=== PATIENT | male | born 1960 | race Caucasian/White ===

== ENCOUNTER → 2020-04-10 07:39 | Outpatient (BNVA) | payer BC, SELFPAY | PROVIDERS: Family Provider Family Medicine; PCP Family Medicine; Referring Provider Family Medicine; Visit Provider Urology | DX: Z12.5 Encounter for screening for malignant neoplasm of prostate (principal); R79.89 Other specified abnormal findings of blood chemistry; N52.9 Male erectile dysfunction, unspecified | CPT/HCPCS: 81001 ==

== ENCOUNTER → 2020-07-14 08:07 | Outpatient (BNVA) | payer BC, SELFPAY | PROVIDERS: Family Provider Family Medicine; PCP Family Medicine; Visit Provider Urology | DX: R79.89 Other specified abnormal findings of blood chemistry (principal); N52.1 Erectile dysfunction due to diseases classified elsewhere | CPT/HCPCS: 81001 ==

== ENCOUNTER → 2021-01-12 08:12 | Outpatient (BNVA) | payer OTHER, SELFPAY | PROVIDERS: Family Provider Family Medicine; PCP Family Medicine; Visit Provider Urology | DX: R79.89 Other specified abnormal findings of blood chemistry (principal); Z12.5 Encounter for screening for malignant neoplasm of prostate; N52.1 Erectile dysfunction due to diseases classified elsewhere | CPT/HCPCS: 81003; 84403; G0103 ==

== ENCOUNTER 2021-04-14 09:42 | Outpatient (CLI) | payer OTHER, SELFPAY ==
--- NOTE | 2021-04-14 09:48 | USCV_ITS ---
Venancio Cooper Age: 61 Gender: M : 1960 Exam Date: 04/14/2021 10:03 Ordering Phys: Christy Dorman NP Technologist: Kalyn Sanches Exam Location: [facility] [place] Indication: RT CALF PAIN PROCEDURES: Venous duplex imaging was performed in only the right lower extremity. The following venous structures were evaluated: common femoral vein, profunda vein, proximal portion of the greater saphenous vein, superficial femoral vein, and the popliteal vein. In addition, the posterior tibial and peroneal trunk were evaluated. FINDINGS: No evidence dvt rle. Tubular structure seen in rt calf at area of pain. Prelim called to Mrs. Dorman. CONCLUSIONS No evidence of right lower extremity DVT. Elongated Fluid collection benign appearing fluid collection Rt medial lower leg below the knee measuring 5.6 x 0.5 cm with some internal debris Chris Ortega MD (Electronically Signed) Final Date: 14 April 2021 12:19 S
== END 2021-04-14 09:43 | disposition home or self-care (01) ==
LOC: RAD 09:44
PROVIDERS: PCP Family Medicine; Visit Provider Nurse Practitioner Family
DX: M79.661 Pain in right lower leg (principal); M79.89 Other specified soft tissue disorders
CPT/HCPCS: 93971

== ENCOUNTER → 2021-07-15 08:16 | Outpatient (BNVA) | payer OTHER, SELFPAY | PROVIDERS: PCP Family Medicine; Visit Provider Urology | DX: R79.89 Other specified abnormal findings of blood chemistry (principal) | CPT/HCPCS: 81003; 84403 ==

== ENCOUNTER → 2021-08-12 14:05 | Outpatient (BNVA) | payer OTHER, SELFPAY | PROVIDERS: PCP Family Medicine; Referring Provider Family Medicine; Visit Provider Specialist | DX: G56.03 Carpal tunnel syndrome, bilateral upper limbs (principal) | CPT/HCPCS: 95910 ==

== ENCOUNTER → 2021-08-19 13:39 | Outpatient (BNVA) | payer OTHER, SELFPAY | PROVIDERS: PCP Family Medicine; Referring Provider Family Medicine; Visit Provider Specialist | DX: G56.03 Carpal tunnel syndrome, bilateral upper limbs (principal) | CPT/HCPCS: 73110 ==

== ENCOUNTER 2021-10-12 16:17 | Emergency (ER) | payer OTHER, SELFPAY ==
[2021-10-12 16:21] VITALS: BP 143/83; PULSE 93; RESP 18; TEMP 36.7; O2SAT 97; BMI 25.0
--- NOTE | 2021-10-12 19:17 | XRR_ITS ---
PROCEDURE INFORMATION: Exam: XR Chest Exam date and time: 10/12/2021 7:17 PM Age: 61 years old Clinical indication: Shortness of breath; Additional info: SOB TECHNIQUE: Imaging protocol: XR of the chest. Views: 1 view. COMPARISON: CR Chest 2 views* [id number] 10/20/2016 4:23 PM FINDINGS: Lungs: Mild linear atelectasis or scar in the left lung base. The right lung is clear. Probable emphysema. Pleural spaces: Unremarkable. No pleural effusion. No pneumothorax. Heart/Mediastinum: Unremarkable. No cardiomegaly. Bones/joints: Unremarkable. XR/XR chest 1V portable [id number] IMPRESSION: No acute finding.
--- NOTE | 2021-10-12 19:17 | ECG_ITS ---
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 Measurements Intervals Rush Rate: 88 P: 81 ND: 139 QRS: 80 QRSD: 117 T: 51 QT: 362 QTc: 440 Interpretive Statements SINUS RHYTHM MODERATE INTRAVENTRICULAR CONDUCTION DELAY [110+ ms QRS DURATION] Compared to ECG 10/20/2016 16:49:04 Intraventricular conduction delay now present Electronically Signed On 10-13-2021 23:42:47 PILE DRIVING SETTER by Stevie Leary M.D. [id number]
[2021-10-12 19:33] LABS: Basophils # 0.1 10^3/uL (0.0-0.1); Basophils % 0.5 %; Eosinophils # 0.2 10^3/uL (0.0-0.8); Eosinophils % 1.5 %; Hematocrit 50.7 % (42.0-52.0); Hemoglobin 17.2 g/dL (11.7-16.6); Lymphocytes % 21.8 %; Mean Corpuscular HGB Conc 33.9 g/dL (30.0-36.0); Mean Corpuscular Volume 91.5 fl (80-94); Mean Platelet Volume 8.9 fL (7.4-10.4); Monocytes # 0.7 10^3/uL (0.2-0.9); Monocytes % 5.3 %; Neutrophils # 9.67 10^3/uL (1.8-7.7); Neutrophils % 70.6 %; Nucleated Red Blood Cells % 0 %; Platelet Count 284 10^3/cmm (130-400); Red Blood Count 5.54 10^6/uL (4.1-5.3); Red Cell Distribution Width 12.3 % (12.1-15.1); White Blood Count 13.7 10^3/uL (4.0-10.0)
[2021-10-12 20:02] LABS: Alanine Aminotransferase 13 U/L (0-41); Albumin Level 4.1 g/dL (3.5-5.2); Alkaline Phosphatase 80 IU/L (40-130); Anion Gap 15.7 (5-19); Aspartate Amino Transferase 12 U/L (0-40); Blood Urea Nitrogen 9 mg/dL (8-23); Calcium 8.4 mg/dL (8.5-10.5); Carbon Dioxide 23 mmol/L (22-29); Chloride 105 mmol/L (98-107); Globulin 2.9 g/dL (1.3-4.6); Glomerular Filtration Rate 114.6 mL/min (90-130); Glucose 89 mg/dL (65-115); NT Pro B Type Natriuretic Pept 24 pg/mL (0-125); Osmolality Calculated 288 mOsm/kg (285-295); Potassium 3.7 mmol/L (3.5-5.1); Sodium 140 mmol/L (136-145); Total Bilirubin 0.6 mg/dL (0.15-1.2)
[2021-10-12 21:18] LABS: Adenovirus Not Detected (NOT DETECT); Chlamydia Pneumoniae Not Detected (NOT DETECT); Coronavirus 229E,HKU1,NL63,OC4 Not Detected (NOT DETECT); Human Metapneumovirus Not Detected (NOT DETECT); Human Rhinovirus/Enterovirus Not Detected (NOT DETECT); Influenza A Not Detected (NOT DETECT); Influenza A H1 Not Detected (NOT DETECT); Influenza A H1-2009 Not Detected (NOT DETECT); Influenza A H3 Not Detected (NOT DETECT); Influenza B Not Detected (NOT DETECT); Mycoplasma Pneumoniae Not Detected (NOT DETECT); Parainfluenza Virus Type 1 Not Detected (NOT DETECT); Parainfluenza Virus Type 2 Not Detected (NOT DETECT); Parainfluenza Virus Type 3 Not Detected (NOT DETECT); Parainfluenza Virus Type 4 Not Detected (NOT DETECT); Respiratory Syncytial Virus A Not Detected (NOT DETECT); Respiratory Syncytial Virus B Detected (NOT DETECT); SARS-COV-2 Not Detected (NOT DETECT)
[2021-10-12 21:51] LABS: Respiratory Syncytial Virus A Not Detected (NOT DETECT); Respiratory Syncytial Virus B Detected (NOT DETECT); Results from Genmark
--- NOTE | 2021-10-12 22:07 | W.ED.COVID ---
HPI - COVID General: Chief Complaint: COVID symptoms Stated Complaint: CHEST PAIN DIFF BREATHING Time Seen by Provider: 10/12/21 21:54 Source: patient Mode of arrival: ambulatory Limitations: no limitations Triage information: Has fever, cough or shortness of breath. No known COVID + exposure last 14 days History of Present Illness: HPI Narrative: 61-year-old male states that over the last 5 to 7 days been having cough congestion sinus pressure. States that he had a fever that is improved the last 2 days been having increasing wheezing and cough today. States he went to another facility to have a Covid test today and ran out of the testing and had them come here states he does not feel short of breath currently is in no distress able speak in full sentences denies any vomiting or diarrhea denies any worsening improving factors. COVID 19 common symptoms: positive non-productive cough and dyspnea; negative fever(s), chills, body aches, headache(s), throat pain, nausea, vomiting or diarrhea COVID 19 other sytmptoms: negative chest pain COVID Results: SARS-CoV-2 RNA (RT-PCR) Pending 10/12/21 23:59 10/12/21 Review of Systems Const: Denies: fever(s), chills, body aches or change in appetite Eyes: Denies: blurry vision or eye discomfort ENMT: Denies: throat pain or dental pain Card: Denies: chest pain Resp: Reports: dyspnea, non-productive cough and wheezing GI: Denies: abdominal pain, nausea, vomiting or diarrhea : Denies: dysuria Musc: Denies: neck pain or back pain Skin/Breast: Denies: rash Neuro: Denies: headache(s) Psych: Denies: depression Roberto/Lymph: Denies: easy bruising All/Imm: Denies: urticaria PFSH ED PFSH: Medical History (Updated 10/12/21 @ 22:09 by Didier Becker MD) Bilateral carpal tunnel syndrome Erectile dysfunction Low testosterone Surgical History H/O hernia repair Family History Father CAD (coronary artery disease) Hypertension Mother Hypertension Brother Hypertension Sister Hypertension Social History Alcohol intake: current Alcohol intake frequency: few times a month Alcohol type: other Lives independently: Yes Household members: spouse Marital status: Current occupational status: employed Physical Exam Const: COMMON NORMALS: no acute distress, patient oriented x3 and healthy appearing HENMT: COMMON NORMALS: normocephalic and atraumatic HEAD & SCALP: normocephalic and atraumatic Eye: COMMON NORMALS: Equal, round and reactive pupils present and EOMs intact bilaterally PUPIL: Yes Equal, round and reactive pupils present Neck/C-Spine: COMMON NORMALS: full ROM and supple Chest: COMMONS NORMALS: normal inspection of the chest and normal palpation of entire chest wall Resp: COMMON NORMALS: normal respiratory effort, No retractions and No use of accessory muscles AUSCULTATION: wheezes Cardio: COMMON NORMALS: regular rate, regular rhythm and No murmurs present (Cardio) RATE: regular rate RHYTHM: regular rhythm GI: COMMON NORMALS: Normal to inspection, nondistended, normoactive bowel sounds present, Soft to palpation, non-tender and no masses PALPATION: Yes Soft to palpation Extremity: COMMON NORMALS: normal to inspection and full ROM Neuro: COMMON NORMALS: patient oriented x3, moves all extremities and no focal motor deficits Psych: COMMON NORMALS: mental status grossly normal, Normal thought process present and cooperative THOUGHT PROCESS: Normal thought process present Skin: COMMON NORMALS: no rashes or lesions noted and no wounds GENERAL SKIN EXAM: no rashes or lesions noted Course Vital Signs: Vital signs: Vital Signs Temperature 98.1 F 10/12/21 16:21 Pulse Rate 93 10/12/21 22:10 Respiratory Rate 18 10/12/21 22:10 Blood Pressure 148/120 10/12/21 22:10 Pulse Oximetry 96 10/12/21 22:12 MDM - COVID MDM Narrative: Medical decision making narrative: Patient presents with cough congestion does have some wheezing here blood work here is all normal x-ray shows no signs of pneumonia is Covid test here is negative he is in no distress we will place him on steroids along with antibiotics and albuterol inhaler for his bronchitis he is to follow his PCP in 2 to 4 days return if worsening. Lab Data: Labs: Lab Results 10/12/21 10/12/21 10/12/21 19:25 19:25 19:25 WBC 13.7 10^3/uL H 10 ^3/uL (4.0-10.0) RBC 5.54 10^6/uL H 10 ^6/uL (4.1-5.3) Hgb 17.2 g/dL H g/dL (11.7-16.6) Hct 50.7 % % (42.0-52.0) MCV 91.5 fl fl (80-94) MCH 31.0 pg pg (28.0-34.0) MCHC 33.9 g/dL g/dL (30.0-36.0) RDW 12.3 % % (12.1-15.1) Plt Count 284 10^3/cmm 10^3 /cmm (130-400) MPV 8.9 fL fL (7.4-10.4) Neut % (Auto) 70.6 % % Lymph % (Auto) 21.8 % % Bourbon % (Auto) 5.3 % % Eos % (Auto) 1.5 % % Baso % (Auto) 0.5 % % Neut # (Auto) 9.67 10^3/uL H 10 ^3/uL (1.8-7.7) Lymph # (Auto) 3.0 10^3/uL 10^3/ uL (0.8-4.8) Bourbon # (Auto) 0.7 10^3/uL 10^3/ uL (0.2-0.9) Eos # (Auto) 0.2 10^3/uL 10^3/ uL (0.0-0.8) Baso # (Auto) 0.1 10^3/uL 10^3/ uL (0.0-0.1) Nucleated RBC % (a uto) 0 % % Nucleated RBCs # 0.0 /100WBC /100W BC Sodium 140 mmol/L mmol/L (136-145) Potassium 3.7 mmol/L mmol/L (3.5-5.1) Chloride 105 mmol/L mmol/L (98-107) Carbon Dioxide 23 mmol/L mmol/L (22-29) Anion Gap 15.7 (5-19) BUN 9 mg/dL mg/dL (8-23) Creatinine 0.7 mg/dL mg/dL (0.7-1.2) GFR Calculation 114.6 mL/min mL/m in (90-130) Glucose 89 mg/dL mg/dL (65-115) Calculated Osmolal ity 288 mOsm/kg mOsm/ kg (285-295) Calcium 8.4 mg/dL L mg/dL (8.5-10.5) Total Bilirubin 0.6 mg/dL mg/dL (0.15-1.2) AST 12 U/L U/L (0-40) ALT 13 U/L U/L (0-41) Alkaline Phosphata se 80 IU/L IU/L (40-130) NT-Pro-B Natriuret Pep 24 pg/mL pg/mL (0-125) Total Protein 7.0 g/dL g/dL (6.6-8.7) Albumin 4.1 g/dL g/dL (3.5-5.2) Globulin 2.9 g/dL g/dL (1.3-4.6) Coronavirus 229E ( PCR) Not detected (NOT DETECT) RSV Type A (PCR) RSV Type B (PCR) SARS-CoV-2 (PCR) Not detected (NOT DETECT) 10/12/21 21:30 WBC RBC Hgb Hct MCV MCH MCHC RDW Plt Count MPV Neut % (Auto) Lymph % (Auto) Bourbon % (Auto) Eos % (Auto) Baso % (Auto) Neut # (Auto) Lymph # (Auto) Bourbon # (Auto) Eos # (Auto) Baso # (Auto) Nucleated RBC % (a uto) Nucleated RBCs # Sodium Potassium Chloride Carbon Dioxide Anion Gap BUN Creatinine GFR Calculation Glucose Calculated Osmolal ity Calcium Total Bilirubin AST ALT Alkaline Phosphata se NT-Pro-B Natriuret Pep Total Protein Albumin Globulin Coronavirus 229E ( PCR) RSV Type A (PCR) Not detected (NOT DETECT) RSV Type B (PCR) Detected A (NOT DETECT) SARS-CoV-2 (PCR) Imaging Data: CXR: Attestation: I personally reviewed and interpreted this imaging study as follows: My impression: No acute abnormality EKG Data: EKG 1: Attestation: I personally reviewed and interpreted this EKG as follows: EKG interpretation date: 10/12/21 EKG interpretation time: 22:38 Interpretation: nsr hr [address] or t wave abnormlities qrs 117 qtc 408 COVID Results: SARS-CoV-2 RNA (RT-PCR) Pending 10/12/21 23:59 10/12/21 Discharge Plan Discharge Patient Disposition: Home Clinical Impression: Bronchitis Condition: Stable Prescriptions: New prednisone 50 mg tablet 50 mg PO DAILY Qty: 5 RF: 0 albuterol sulfate 90 mcg/actuation HFA aerosol inhaler 2 inh INHALATION Q6H PRN (Reason: shortness of breath or wheezing) Qty: 8 RF: 0 doxycycline hyclate 100 mg tablet 100 mg PO BID 7 Days Qty: 14 RF: 0 No Action esomeprazole magnesium [Nexium] 20 mg capsule,delayed release(DR/EC) 20 mg PO DAILY RF: 0 hydrocodone-acetaminophen [[place]] 5-325 mg tablet 1 tab PO Q6H PRNRF: 0 escitalopram oxalate [Lexapro] 20 mg tablet 20 mg PO DAILY RF: 0 bupropion HCl 150 mg tablet extended release 24 hr 150 mg PO QAM RF: 0 testosterone cypionate [Depo-Testosterone] 200 mg/mL oil 200 mg IM .EVERY OTHER WEEK Qty: 10 RF: 5 Discharge Orders: Discharge ED (Routine); Ordered 10/12/21 Ordered By: Didier Becker Referrals: Francheska Perez MD [Primary Care Provider] - 1-3 days Discharge Diet: Advance as tolerated Discharge Activity: Resume usual activity Patient Instructions: Bronchitis (Acute) - Adult Coding Level of Care Code ED Hvac Mechanic for Chg Fwd Exam Comprehensive
[2021-10-12 22:10] VITALS: BP 148/120; PULSE 93; RESP 18; O2SAT 96
[2021-10-12 22:12] VITALS: O2SAT 96
[2021-10-12] MEDS: albuterol 8 gm MDI 2 PUFF INHALATION (22:25)
== END 2021-10-12 22:44 | disposition home or self-care (01) ==
PROVIDERS: Emergency Provider Emergency Medicine; PCP Family Medicine
DX: J40 Bronchitis, not specified as acute or chronic (principal); Z20.822 Contact with and (suspected) exposure to COVID-19
CPT/HCPCS: 71045; 80053; 83880; 85025; 87635; 87801; 93005; 94640; 99283; J3535

== ENCOUNTER → 2021-10-26 09:09 | Outpatient (BNVA) | payer MEDICARE, SELFPAY | PROVIDERS: PCP Family Medicine; Visit Provider Specialist | DX: Z01.818 Encounter for other preprocedural examination (principal); Z20.822 Contact with and (suspected) exposure to COVID-19 | CPT/HCPCS: 87635 ==

== ENCOUNTER 2021-10-30 07:38 | Day surgery (SDC) | payer MEDICARE, SELFPAY ==
[2021-10-29 10:33] VITALS: BMI 25.0
[2021-10-30 08:16] VITALS: BP 137/78; PULSE 83; RESP 16; TEMP 36.7; O2SAT 96
[2021-10-30] MEDS: CELEcoxib 200 mg Capsule 400 MG PO (08:49)
[2021-10-30] MEDS: sodium chloride 0.9% 1,000 ML 30 ML IV (08:50)
--- NOTE | 2021-10-30 09:02 | ANES.PREANE2 ---
Pre-Anesthetic Assessment Pre-Anesthetic Assessment: Height/Weight: Height 1.83 m Weight 83.915 kg Temp Pulse Resp BP Pulse Ox 98.1 F 83 16 137/78 96 10/30/21 08:16 10/30/21 08:16 10/30/21 08:16 10/30/21 08:16 10/30/21 08:16 Preop Diagnosis: Left carpal tunnel syndrome Proposed Procedure: Operation Date: 10/30/21 09:10 Proposed Procedures p Carpal Tunnel Release 02406 G56.00(Left) - Elizabeth Stafford MD Familial anesthetic complications: None Was Beta Alexx taken within 24 hours: N/A Was Clonidine taken within 24 hours: N/A Last intake: Intake Last Liquid Date 10/29/21 Last Liquid Time 20:00 Last Solid Date 10/29/21 Last Solid Time 20:00 Social: Social History: No alcohol and No tobacco Exam: Pre-Anes Outpt Exam: alert, oriented x 3, clear to auscultation bilaterally and regular rate & rhythm Airway: Cervical ROM: WNL MP: 2 Dentition: False Pulmonary: Comments: Recent bronchitis last month, finished antibiotics course and prednisone. Back to baseline per patient CV/HEM: CV/HEM: HTN Anesthetic Plan: ASA status: 2 Anesthesia: MAC and Regional (specify below) (tania block) Risk of > 500 ml blood loss (7ml/kg in children): No Medications/Allergies Current Medications: Current Medications Generic Name Dose Route Start Last Admin Trade Name Freq PRN Reason Stop Dose Admin Sodium Chloride 1,000 mls @ 30 ml s/hr 10/30/21 08:15 10/30/21 08:50 Sodium Chloride 0.9% IV 10/31/21 08:14 30 mls/hr .Q24H JOSSELYN Administration PFSH Anesthesia PFSH: Medical History (Updated 10/20/21 @ 00:00 by ) Bilateral carpal tunnel syndrome Erectile dysfunction Low testosterone Surgical History H/O hernia repair Family History Father CAD (coronary artery disease) Hypertension Mother Hypertension Brother Hypertension Sister Hypertension Social History Alcohol intake: current Alcohol intake frequency: few times a month Alcohol type: other Lives independently: Yes Household members: spouse Marital status: Current occupational status: employed Data Anesthesia CBC & Chem 7: 10/30/21 08:40 10/30/21 08:40 Cardiac Studies: No Data to Display
[2021-10-30 09:07] LABS: Basophils # 0.1 10^3/uL (0.0-0.1); Basophils % 0.8 %; Eosinophils # 0.2 10^3/uL (0.0-0.8); Eosinophils % 2.2 %; Hematocrit 48.4 % (42.0-52.0); Hemoglobin 16.4 g/dL (11.7-16.6); Lymphocytes # 2.6 10^3/uL (0.8-4.8); Mean Corpuscular HGB Conc 33.9 g/dL (30.0-36.0); Mean Corpuscular Hemoglobin 31.2 pg (28.0-34.0); Mean Platelet Volume 9.5 fL (7.4-10.4); Monocytes # 0.7 10^3/uL (0.2-0.9); Monocytes % 8.6 %; Neutrophils # 4.86 10^3/uL (1.8-7.7); Nucleated Red Blood Cells % 0 %; Platelet Count 286 10^3/cmm (130-400); Red Blood Count 5.26 10^6/uL (4.1-5.3); White Blood Count 8.5 10^3/uL (4.0-10.0)
[2021-10-30] MEDS: acetaminophen 1,000 MG/100 ML PIGGYBACK 400 MG IV (09:08)
[2021-10-30 09:25] LABS: Alanine Aminotransferase 19 U/L (0-41); Alkaline Phosphatase 77 IU/L (40-130); Aspartate Amino Transferase 15 U/L (0-40); Blood Urea Nitrogen 9 mg/dL (8-23); Calcium 8.5 mg/dL (8.5-10.5); Carbon Dioxide 23 mmol/L (22-29); Chloride 104 mmol/L (98-107); Globulin 2.1 g/dL (1.3-4.6); Glomerular Filtration Rate 114.6 mL/min (90-130); Glucose 97 mg/dL (65-115); Osmolality Calculated 285 mOsm/kg (285-295); Sodium 138 mmol/L (136-145); Total Bilirubin 1.2 mg/dL (0.15-1.2); Total Protein 6.1 g/dL (6.6-8.7)
[2021-10-30 09:27] LABS: Anion Gap 14.9 (5-19); Potassium 3.9 mmol/L (3.5-5.1)
[2021-10-30] MEDS: vancomycin 1,000 MG in sodium chloride 0.9% 250 ML 250 MG IV (09:30)
--- NOTE | 2021-10-30 10:00 | W.PM.OPSUD ---
Surgery/Procedure H&P Update DATE OF PROCEDURE: October 30, 2021 DATE H&P PERFORMED: 10/14/21 H&P UPDATE INFORMATION: I have reviewed H&P completed within last 30 days, I have examined patient prior to procedure, Changes to prior documentation as noted here (Started Losartan) and H&P is in [facility] [place] EMR on date indicated PREOP DIAGNOSIS: Left carpal tunnel syndrome PRIMARY INDICATION FOR PROCEDURE: Left carpal tunnel syndrome PLANNED PROCEDURE: Operation Date: 10/30/21 09:10 Proposed Procedures p Carpal Tunnel Release 11161 G56.00(Left) - Elizabeth Stafford MD Related Problem List Diagnoses (1) Carpal tunnel syndrome, left:
[2021-10-30 11:11] VITALS: BP 89/63; PULSE 82; RESP 17; TEMP 36.3; O2SAT 98
[2021-10-30 11:16] VITALS: BP 89/62; PULSE 82; RESP 16; O2SAT 100
--- NOTE | 2021-10-30 11:19 | P.OP_ITS ---
Operative Report Date of procedure: October 30, 2021 Pre-op Diagnosis: Left carpal tunnel syndrome Post-op diagnosis: same Post-op Findings: Compression across the left median nerve through the carpal canal Procedure Done: Left carpal tunnel release Specimens removed/disposition: None Pathology: none sent Surgeon: Elizabeth Stafford Laboratory Mechanical Technician: None Anesthesia: MAC (With Lary block, ASA 2) Estimated blood loss (mL): 3 Tourniquet time (min): 42 IV fluids (mL): 500 Urine output (mL): 0 Urine output: No Vega Complications: None Findings: Median nerve compression through the carpal canal, left Condition: stable Disposition: PACU (Then to same-day surgery for discharge to home) Brief History: This 61-year-old gentleman presented with symptoms for classic carpal tunnel. After discussion, the patient noted he had not had improvement with conservative measures. He wished to proceed with operative intervention. Risks and complications were discussed with him. Consents were signed, and questions were answered. Procedure: The patient was brought to the operating theater. The patient had a Mobridge block with MAC. The tourniquet was elevated to 250 mmHg for a total tourniquet time of 42 minutes. The patient was also given vancomycin 1 g preoperatively. The arm was then prepped and draped with DuraPrep in usual fashion with the arm draped free. A surgical pause was performed. At the time, the surgical pause, we confirmed the site and side of surgery. We also confirmed the patient's identity, appropriate and timely administration of preoperative antibiotics and preoperative surgical markings. An incision was then made along the thenar crease. The incision crossed the wrist joint in a curvilinear fashion. Dissection continued through skin and soft tissues using a scalpel. The palmaris longus was identified along with the t ransverse carpal ligament. Each of these was released carefully to avoid injury to the median nerve. We were able to dissect gently into the carpal canal which was noted to be quite tight with significant compression across the median nerve. The nerve was visualized, and there was some discoloration. The canal was subsequently palpated to assure there was no bony encroachment upon the canal. The canal was then palpated distally and proximally to assure that my small finger passed easily without impingement. Finding this to be so, attention was directed to closure. The wound was irrigated with ropivacaine plain. It was then closed with 3-0 nylon in an interrupted mattress fashion. Sterile dressing was then placed consisting of Xeroform gauze, fluffed fluffs, sterile soft roll, a volar splint, and an Maurizio wrap. The tourniquet was released after 42 minutes. There were no complications. There were no specimens. The procedure was well tolerated. Plan is the patient will be discharged home. Associated Problem List Diagnoses (1) Carpal tunnel syndrome, left:
[2021-10-30 11:20] VITALS: BP 116/67; PULSE 82; RESP 16; TEMP 36.2; O2SAT 99
--- NOTE | 2021-10-30 13:14 | ANE.PACU2 ---
Inpatient post-anesthesia follow up: Airway intact: Yes Vital signs: Temperature 97.1 F Pulse Rate 82 Respiratory Rate 16 Blood Pressure 116/67 Pulse Oximetry 99 Oxygen Delivery Me thod Room Air Oxygen Flow Rate 7 Fraction of Inspir ed Oxygen Hydration adequate: Yes Nausea and vomiting: No Pain level: 1 Mental status: Baseline
== END 2021-10-30 11:50 | disposition home or self-care (01) ==
PROVIDERS: PCP Family Medicine; Visit Provider Specialist
PROC: (CPT 64721; principal; 2021-10-30 09:10)
DX: G56.02 Carpal tunnel syndrome, left upper limb (principal); I10 Essential (primary) hypertension; Z82.49 Family history of ischemic heart disease and other diseases of the circulatory system; Z79.52 Long term (current) use of systemic steroids
CPT/HCPCS: 64721; 36415; 80053; 85025; 96365; J2704; J3010; J3490; J7030; J7050

== ENCOUNTER 2022-01-12 07:26 | Outpatient (CLI) | payer MEDICARE, SELFPAY | END 2022-01-12 07:27 | disposition home or self-care (01) | LOC: LAB 07:29 | PROVIDERS: PCP Family Medicine; Visit Provider Urology | DX: Z12.5 Encounter for screening for malignant neoplasm of prostate (principal); R79.89 Other specified abnormal findings of blood chemistry | CPT/HCPCS: 36415; 81003; 84153; 84403 ==

== ENCOUNTER 2022-02-16 14:24 | Outpatient (CLI) | payer MEDICARE, SELFPAY | END 2022-02-16 14:25 | disposition home or self-care (01) | PROVIDERS: PCP Family Medicine; Visit Provider Urology | DX: R97.20 Elevated prostate specific antigen [PSA] (principal); R79.89 Other specified abnormal findings of blood chemistry; N52.1 Erectile dysfunction due to diseases classified elsewhere | CPT/HCPCS: 36415; 81003; 84153; 99213 ==

== ENCOUNTER 2022-10-26 13:39 | Outpatient (CLI) | payer MEDICARE, SELFPAY ==
--- NOTE | 2022-10-26 14:18 | XR_ITS ---
WS: [id number] XR lumbar spine 2-3V* [id number] REASON FOR EXAM: DORSALGIA, CHRONIC BACK PAIN FINDINGS: Normal AP and lateral curvatures. No compression deformity or significant focal vertebral body lesion. Intervertebral disc spaces are relatively well-preserved. Small marginal osteophytes of the vertebral bodies. No spondylolysis identified. No significant listhesis. XR/XR lumbar spine 2-3V* [id number] IMPRESSION: Minimal change of degenerative spondylosis. The spine is relatively unchanged c ompared to 07/19/2012.
== END 2022-10-26 13:40 | disposition home or self-care (01) ==
PROVIDERS: PCP Family Medicine; Visit Provider Family Medicine
DX: G89.29 Other chronic pain (principal); M47.816 Spondylosis without myelopathy or radiculopathy, lumbar region
CPT/HCPCS: 72100

== ENCOUNTER 2022-12-30 13:40 | Outpatient (CLI) | payer MEDICARE, SELFPAY ==
[2022-12-30 14:31] LABS: Testosterone Total 918.3 ng/dL (193-740)
[2022-12-30 14:51] LABS: Prostate Specific AG Urology 0.95 ng/mL (0-4)
== END 2022-12-30 13:41 | disposition home or self-care (01) ==
PROVIDERS: PCP Family Medicine; Visit Provider Urology
DX: R97.20 Elevated prostate specific antigen [PSA] (principal); R79.89 Other specified abnormal findings of blood chemistry
CPT/HCPCS: 36415; 84153; 84403

== ENCOUNTER → 2023-01-05 12:45 | Outpatient (BNVA) | payer MEDICARE, SELFPAY | PROVIDERS: PCP Family Medicine; Visit Provider Urology | DX: R79.89 Other specified abnormal findings of blood chemistry (principal); N52.1 Erectile dysfunction due to diseases classified elsewhere | CPT/HCPCS: 81003; 99213 ==

== ENCOUNTER 2023-07-15 10:56 | Outpatient (CLI) | payer MEDICARE, SELFPAY ==
--- NOTE | 2023-07-15 11:15 | XRR_ITS ---
PROCEDURE INFORMATION: Exam: XR Chest Exam date and time: 07/15/2023 11:41 AM Age: 63 years old Clinical indication: Cough with hemorrhage; Additional info: Cough/hemoptysis/sinusitis TECHNIQUE: Imaging protocol: Radiologic exam of the chest. Views: 2 views. COMPARISON: CR (CHEST, ) 10/12/2021 7:26 PM FINDINGS: Lungs: Unremarkable. No consolidation. Pleural spaces: Unremarkable. No pleural effusion. No pneumothorax. Heart/Mediastinum: Unremarkable. No cardiomegaly. Bones/joints: Mild degenerative changes in the thoracic spine. XR/XR chest 2V* [id number] IMPRESSION: No acute findings.
== END 2023-07-15 10:57 | disposition home or self-care (01) ==
PROVIDERS: PCP Family Medicine; Visit Provider Family Medicine
DX: R04.2 Hemoptysis (principal); J32.9 Chronic sinusitis, unspecified
CPT/HCPCS: 71046

== ENCOUNTER 2024-04-25 20:00 | Outpatient (CLI) | payer MEDICARE, SELFPAY | END 2024-04-25 20:01 | disposition home or self-care (01) | LOC: SLEEP 04-26 06:30 | PROVIDERS: PCP Family Medicine; Visit Provider Family Medicine | DX: G47.10 Hypersomnia, unspecified (principal); G47.36 Sleep related hypoventilation in conditions classified elsewhere; G47.61 Periodic limb movement disorder | CPT/HCPCS: 95810 ==

== ENCOUNTER 2024-09-20 07:13 | Outpatient (CLI) | payer MEDICARE, SELFPAY ==
--- NOTE | 2024-09-20 07:16 | MR_ITS ---
WS: [id number] MRI LUMBAR SPINE NONCONTRAST HISTORY: CHRONIC LOW BACK PAIN COMPARISON: 03/05/2014 TECHNIQUE: Sagittal and axial multisequence imaging is submitted. Mild increase in the lumbar lordosis. No acute fracture or marrow edema. Disc spaces are well preserv ed. Disc spaces and vertebral body heights are well-preserved. Conus terminates normally at L1. L1-L2: Normal. L2-L3: Mild annular disc bulging with mild ligamentum flavum and facet arthritis. Small amount of flu id in the facet joints. There is very slight encroachment upon the ventral thecal sac. L3-L4: Mild annular disc bulging with a small amount of fluid in the facet joints. Mild ligamentum fl avum hypertrophy. No stenosis. L4-L5: Mild annular disc bulging with a broad-based central disc protrusion encroaching upon the vent ral thecal sac. Mild effacement of the ventral CSF. Mild subarticular recess encroachment. Ligamentum flavum and facet joint arthritis. There is mild central, bilateral subarticular recess and foraminal stenosis. No disc contact on the nerve roots. L5-S1: Mild annular disc bulge with a tiny central disc protrusion. Minimal encroachment upon the LEF T S1 nerve root by the disc bulging. Mild facet arthritis. Paravertebral soft tissues are normal. MR/MR lumbar spine wo con* [id number] IMPRESSION: 1. No high-grade central or foraminal stenosis. 2. L4-5: Broad-based central disc protrusion at L4-5. Very mild central, bilat eral subarticular recess and foraminal stenosis. 3. L5-S1: Tiny central disc protrusion. There is minimal encroachment upon the LEFT S1 nerve root by the disc bulging. 4. Small amount of fluid in the facet joints of L2-3 and L3-4.
== END 2024-09-20 07:14 | disposition home or self-care (01) ==
PROVIDERS: PCP Family Medicine; Visit Provider Family Medicine
DX: M51.26 Other intervertebral disc displacement, lumbar region (principal)
CPT/HCPCS: 72148

== ENCOUNTER 2025-10-08 08:03 | Outpatient (CLI) | payer MEDICARE, SELFPAY ==
--- NOTE | 2025-10-08 08:24 | XR_ITS ---
WS: [id number] Left foot, 3 views, 10/08/2025 Clinical Data: PAIN OF LEFT FOOT/HEEL Comparison: None. Findings: No fractures or dislocations are seen. No bone destruction or erosion is noted. The joint spaces and soft tissues are normal. There is a plantar spur. XR/XR foot LT min 3V* [id number] Impression: Negative left foot.
== END 2025-10-08 08:04 | disposition home or self-care (01) ==
PROVIDERS: PCP Family Medicine; Visit Provider Nurse Practitioner Family
DX: M79.672 Pain in left foot (principal); M77.32 Calcaneal spur, left foot
CPT/HCPCS: 73630